=== PATIENT | female | born 1985 | race Caucasian/White ===

== ENCOUNTER 2017-12-06 11:12 | Outpatient (REF) | payer OTHER, SELFPAY | END 2017-12-06 11:32 | LOC: LBN 11:12 | PROVIDERS: PCP Nurse Practitioner Family; Visit Provider Nurse Practitioner Family | DX: R30.0 Dysuria (principal) | CPT/HCPCS: 87077; 87086; 87186 ==

== ENCOUNTER 2018-03-13 14:37 | Outpatient (REF) | payer OTHER, SELFPAY ==
[2018-03-15 14:36] LABS: Chlamydia Result Negative; GC Result Negative; Specimen Description CERVIX
== END 2018-03-13 14:57 ==
LOC: LBN 14:37
PROVIDERS: PCP Nurse Practitioner Family; Visit Provider Nurse Practitioner Family
DX: Z11.3 Encounter for screening for infections with a predominantly sexual mode of transmission (principal)
CPT/HCPCS: 87491; 87591

== ENCOUNTER 2018-10-27 09:01 | Outpatient (REF) | payer OTHER, SELFPAY ==
--- NOTE | 2018-10-27 08:45 | PAPFT_PTH ---
PATIENT: Mala Gil LOC: [facility] U#:[id number] AGE/SX: 33/F ROOM: RE10/27/[address]: DAVID Bennett : 1985 BED: DIS: 10/27/2018 SPEC #: [id number] RECD: 10/27/18 12:52 STATUS: DOROTA REDoreen #: [id number] GEOVANNA: 10/27/18 08:[address]: Shelley Davis DEPT: FORMERLY [facility], 1928–1983 Cytology RECD BY: Katherine Gonzalez ENTERED: 10/27/18 12:52 SP TYPE: PAPFT LUDWIG DR: Belen Leal APRN Tissues: 1 - CX/ENDOCX FOR PAP SMEARS Procedures: PAP THIN PREP/UVM Screening HPV DNA PROBE Comments: [id number]
[2018-10-30 14:16] LABS: Chlamydia Result Negative; GC Result Negative; Specimen Description CERVIX
== END 2018-10-27 09:21 ==
LOC: LBN 09:01
PROVIDERS: PCP Nurse Practitioner Family; Visit Provider Nurse Practitioner Family
DX: Z11.3 Encounter for screening for infections with a predominantly sexual mode of transmission (principal); Z12.4 Encounter for screening for malignant neoplasm of cervix; Z11.51 Encounter for screening for human papillomavirus (HPV)
CPT/HCPCS: 87491; 87591; 88142; 87624

== ENCOUNTER 2018-11-21 15:44 | Outpatient (REF) | payer OTHER, SELFPAY ==
--- NOTE | 2018-11-21 15:30 | ENDO_PTH ---
PATIENT: Mala Gil LOC: [facility] U#:[id number] AGE/SX: 33/F ROOM: RE11/21/[address]: Zan Burrows MD : 1985 BED: DIS: 11/21/2018 SPEC #: [id number] RECD: 11/21/18 17:54 STATUS: DOROTA REDoreen #: [id number] GEOVANNA: 11/21/18 15:[address]: Zan Burrows DEPT: Surgical Specimen RECD BY: Katherine Gonzalez ENTERED: 11/21/18 17:54 SP TYPE: Endo OTHR DR: Belen Leal APRN Tissues: 1 - ENDOCERVICAL BX/CURRETTE Procedures: GROSS AND MICRO LEVEL 4 Comments: [id number]
== END 2018-11-21 16:04 ==
LOC: LBN 15:44
PROVIDERS: PCP Nurse Practitioner Family; Visit Provider Obstetrics & Gynecology
DX: N88.8 Other specified noninflammatory disorders of cervix uteri (principal); R87.810 Cervical high risk human papillomavirus (HPV) DNA test positive
CPT/HCPCS: 88305

== ENCOUNTER 2019-10-18 20:57 | Outpatient (REF) | payer OTHER, SELFPAY ==
[2019-10-22 15:33] LABS: Chlamydia Result Negative (Negative); GC Result Negative (Negative)
== END 2019-10-18 21:17 ==
LOC: LBN 20:57
PROVIDERS: PCP Nurse Practitioner Family; Visit Provider Nurse Practitioner Family
DX: Z11.3 Encounter for screening for infections with a predominantly sexual mode of transmission (principal)
CPT/HCPCS: 87491; 87591

== ENCOUNTER 2019-11-15 17:24 | Outpatient (REF) | payer OTHER, SELFPAY ==
--- NOTE | 2019-11-15 13:10 | PAPFT_PTH ---
PATIENT: Mala Gil LOC: [facility] U#:[id number] AGE/SX: 34/F ROOM: RE11/15/[address]: DAVID Bennett : 1985 BED: DIS: 11/15/2019 SPEC #: [id number] RECD: 11/15/19 17:52 STATUS: DOROTA REQ #: [id number] GEOVANNA: 11/15/19 13:[address]: Shelely Davis DEPT: [facility] Cytology RECD BY: Katherine Gonzalez ENTERED: 11/15/19 17:53 SP TYPE: PAPFT OTHR DR: Belen Leal APRN Tissues: 1 - CX/ENDOCX FOR PAP SMEARS Procedures: PAP THIN PREP/UVM Screening HPV DNA PROBE Comments: [id number]
== END 2019-11-15 17:44 ==
LOC: LBN 17:24
PROVIDERS: PCP Nurse Practitioner Family; Visit Provider Nurse Practitioner Family
DX: Z12.4 Encounter for screening for malignant neoplasm of cervix (principal); Z11.51 Encounter for screening for human papillomavirus (HPV); R87.610 Atypical squamous cells of undetermined significance on cytologic smear of cervix (ASC-US)
CPT/HCPCS: 88142; 87624

== ENCOUNTER 2019-12-11 12:33 | Outpatient (REF) | payer OTHER, SELFPAY ==
--- NOTE | 2019-12-11 11:15 | ENDO_PTH ---
PATIENT: Mala Gil LOC: [facility] U#:[id number] AGE/SX: 34/F ROOM: RE12/11/[address]: Zan Burrows MD : 1985 BED: DIS: 12/11/2019 SPEC #: [id number] RECD: 12/11/19 12:49 STATUS: DOROTA REDoreen #: [id number] GEOVANNA: 12/11/19 11:[address]: Zan Burrows DEPT: Surgical Specimen RECD BY: Katherine Gonzalez ENTERED: 12/11/19 12:49 SP TYPE: Endo OTHR DR: Belen Leal APRN Tissues: 1 - ENDOCERVICAL BX/CURRETTE Procedures: GROSS AND MICRO LEVEL 4 Comments: [id number]
== END 2019-12-11 12:53 ==
LOC: LBN 12:33
PROVIDERS: PCP Nurse Practitioner Family; Visit Provider Obstetrics & Gynecology
DX: R87.610 Atypical squamous cells of undetermined significance on cytologic smear of cervix (ASC-US) (principal)
CPT/HCPCS: 88305

== ENCOUNTER 2019-12-14 11:52 | Outpatient (REF) | payer OTHER, SELFPAY ==
--- NOTE | 2019-12-14 10:50 | SKI_PTH ---
PATIENT: Mala Gil LOC: [facility] U#:[id number] AGE/SX: 34/F ROOM: RE12/14/[address]: Mary Lou Crouch : 1985 BED: DIS: 12/14/2019 SPEC #: [id number] RECD: 12/14/19 12:58 STATUS: DOROTA REQ #: [id number] GEOVANNA: 12/14/19 10:[address]: Mary Lou Crouch DEPT: Surgical Specimen RECD BY: Katherine Gonzalez ENTERED: 12/14/19 12:58 SP TYPE: FUENTES MUNROE DR: Belen Leal APRN Tissues: 1 - SKIN BIOPSY(SHAVE/PUNCH) Procedures: SKIN LEVEL 4 Comments: [id number]
== END 2019-12-14 12:12 ==
LOC: LBN 11:52
PROVIDERS: PCP Nurse Practitioner Family; Visit Provider Surgery
DX: D23.5 Other benign neoplasm of skin of trunk (principal)
CPT/HCPCS: 88305

== ENCOUNTER 2020-11-20 12:41 | Outpatient (REF) | payer OTHER, SELFPAY ==
--- NOTE | 2020-11-20 08:40 | PAPFT_PTH ---
PATIENT: Mala Gil LOC: [facility] U#:[id number] AGE/SX: 35/F ROOM: RE11/20/[address]: DAVID Bennett : 1985 BED: DIS: 11/20/2020 SPEC #: [id number] RECD: 11/20/20 13:04 STATUS: DOROTA REDoreen #: [id number] GEOVANNA: 11/20/20 08:[address]: Shelley Davis DEPT: [facility] Cytology RECD BY: Katherine Gonzalez ENTERED: 11/20/20 13:04 SP TYPE: PAPFT OT DR: Belen Leal APRN Tissues: 1 - CX/ENDOCX FOR PAP SMEARS Procedures: PAP THIN PREP/UVM Screening HPV DNA PROBE Comments: [id number]
[2020-11-21 15:24] LABS: Chlamydia Result Negative (Negative); GC Result Negative (Negative)
== END 2020-11-20 12:42 | disposition home or self-care (01) ==
LOC: LBN 12:41
PROVIDERS: PCP Nurse Practitioner Family; Visit Provider Nurse Practitioner Family
DX: Z11.3 Encounter for screening for infections with a predominantly sexual mode of transmission (principal); Z12.4 Encounter for screening for malignant neoplasm of cervix; Z11.51 Encounter for screening for human papillomavirus (HPV); R87.810 Cervical high risk human papillomavirus (HPV) DNA test positive
CPT/HCPCS: 87491; 87591; 88142; 87624

== ENCOUNTER 2021-05-15 15:50 | Outpatient (REF) | payer OTHER, SELFPAY ==
[2021-05-18 15:33] LABS: Chlamydia Result Negative (Negative); GC Result Negative (Negative)
== END 2021-05-15 15:51 | disposition home or self-care (01) ==
LOC: LBN 15:50
PROVIDERS: PCP Nurse Practitioner Family; Visit Provider Nurse Practitioner Family
DX: Z11.3 Encounter for screening for infections with a predominantly sexual mode of transmission (principal)
CPT/HCPCS: 87491; 87591

== ENCOUNTER 2021-10-21 15:01 | Outpatient (REF) | payer OTHER, SELFPAY ==
[2021-10-22 15:00] LABS: Chlamydia Result Negative (Negative); GC Result Negative (Negative)
== END 2021-10-21 15:02 | disposition home or self-care (01) ==
LOC: LBN 15:01
PROVIDERS: PCP Nurse Practitioner Family; Referring Provider Nurse Practitioner Women's Health; Visit Provider Nurse Practitioner Women's Health
DX: Z11.3 Encounter for screening for infections with a predominantly sexual mode of transmission (principal)
CPT/HCPCS: 87491; 87591

== ENCOUNTER 2021-12-21 09:16 | Outpatient (REF) | payer OTHER, SELFPAY ==
--- NOTE | 2021-12-21 08:30 | PAPFT_PTH ---
PATIENT: Mala Gil LOC: [facility] U#:[id number] AGE/SX: 36/F ROOM: RE12/21/[address]: Rhina Adame NP : 1985 BED: DIS: 12/21/2021 SPEC #: [id number] RECD: 12/21/21 12:48 STATUS: DOROTA HARRIS #: [id number] GEOVANNA: 12/21/21 08:[address]: Rhina Adame NP DEPT: [facility] Cytology RECD BY: Katherine Gonzalez ENTERED: 12/21/21 12:48 SP TYPE: PAPFT OTHR DR: Belen Leal APRN Tissues: 1 - CX/ENDOCX FOR PAP SMEARS Procedures: PAP THIN PREP/UVM Screening HPV DNA PROBE Comments: [id number] (CHLAMYDIA/GC)
[2021-12-22 15:31] LABS: Chlamydia Result Negative (Negative); GC Result Negative (Negative)
== END 2021-12-21 09:17 | disposition home or self-care (01) ==
LOC: LBN 09:16
PROVIDERS: PCP Nurse Practitioner Family; Visit Provider Nurse Practitioner Women's Health
DX: Z11.3 Encounter for screening for infections with a predominantly sexual mode of transmission (principal); Z12.4 Encounter for screening for malignant neoplasm of cervix; Z11.51 Encounter for screening for human papillomavirus (HPV); Z87.42 Personal history of other diseases of the female genital tract
CPT/HCPCS: 87491; 87591; 88142; 87624

== ENCOUNTER 2022-02-19 01:45 | Outpatient (CLI) | payer OTHER, SELFPAY ==
[2022-02-19 09:02] LABS: Anion Gap 8.6 mmol/L (3-11); BUN 15 mg/dL (7-18); CO2 24.4 mmol/L (21.0-32.0); CREATININE 0.9 mg/dL (0.55-1.02); Calculated LDL 100 mg/dL (<100); Chloride 103 mmol/L (98-107); Cholesterol 179 mg/dL (<200); Estimated GFR 84.44 (mL/min/1.73m2); Glucose 94 mg/dL (74-106); HDL Cholesterol 66 mg/dL (40-60); Sodium 136 mmol/L (136-145); Triglyceride 68 mg/dL (<150)
[2022-02-22 10:18] LABS: HIV-1/2 Ag & Ab Screen Negative (Negative)
[2022-02-22 10:37] LABS: Hepatitis C Ab w Rflx HCV PCR Negative (Negative)
== END 2022-02-19 01:46 | disposition home or self-care (01) ==
LOC: LBO 01:45
PROVIDERS: PCP Nurse Practitioner Family; Visit Provider Nurse Practitioner Family
DX: Z13.1 Encounter for screening for diabetes mellitus (principal); Z11.4 Encounter for screening for human immunodeficiency virus [HIV]; Z11.59 Encounter for screening for other viral diseases; Z13.220 Encounter for screening for lipoid disorders
CPT/HCPCS: 36415; 80048; 80061; 86803; 87389

== ENCOUNTER 2022-10-12 11:36 | Outpatient (REF) | payer MEDICAID, SELFPAY ==
[2022-10-13 13:12] LABS: Chlamydia Result Negative (Negative); GC Result Negative (Negative)
== END 2022-10-12 11:37 | disposition home or self-care (01) ==
LOC: LBN 11:36
PROVIDERS: PCP Nurse Practitioner Family; Visit Provider Obstetrics & Gynecology
DX: Z11.3 Encounter for screening for infections with a predominantly sexual mode of transmission (principal)
CPT/HCPCS: 87491; 87591; 87480; 87510; 87660

== ENCOUNTER 2023-03-29 03:17 | Outpatient (CLI) | payer OTHER, MEDICAID, SELFPAY ==
[2023-03-29 12:05] LABS: HCT 47.4 % (36.0-46.0); HGB 15.9 g/dL (11.2-15.7); MCH 31.2 pg (27.0-33.0); MCHC 33.5 % (32.0-36.0); MCV 93 fL (80-95); MPV 9.1 fL (8.0-11.0); Platelet Count 383 10^3/uL (130-400); RDW 12.7 % (11.7-14.6); RDW-SD 43.6 fL; WBC 8.47 10^3/uL (4.4-10.8)
[2023-03-29 12:24] LABS: Anion Gap 10.8 mmol/L (3-11); BUN 16 mg/dL (7-18); CO2 25.2 mmol/L (21.0-32.0); CREATININE 0.9 mg/dL (0.55-1.02); Calcium 9.5 mg/dL (8.5-10.1); Chloride 103 mmol/L (98-107); Estimated GFR 83.92 (mL/min/1.73m2); Glucose 96 mg/dL (74-106); Potassium 3.8 mmol/L (3.5-5.1); Sodium 139 mmol/L (136-145)
[2023-03-29 12:28] LABS: HCG Qual (Serum) Negative
== END 2023-03-29 03:18 | disposition home or self-care (01) ==
LOC: LBO 03:17
PROVIDERS: PCP Nurse Practitioner; Visit Provider Obstetrics & Gynecology Gynecology
DX: Z01.818 Encounter for other preprocedural examination (principal)
CPT/HCPCS: 36415; 80048; 85027; 86850; 86900; 86901; 84703

== ENCOUNTER 2023-03-30 06:14 | Day surgery (SDC) | payer OTHER, SELFPAY ==
[2023-03-30] VITALS (8 sets, daily range): BP systolic 103–133; BP diastolic 66–92; PULSE 72–96; RESP 16–22; TEMP 36.3–36.5; O2SAT 96–100; BMI 30.9
[2023-03-30] MEDS: Lactated Ringers 1,000 ML 125 ML IV (06:41)
--- NOTE | 2023-03-30 07:05 | W.ANESPRE ---
General Info Date of Service Date Performed: 03/30/23 Height: 5 ft 2 in Weight: 76.7 kg Body Mass Index (BMI): 30.9 Surgical Procedure: Operation Date: 03/30/23 07:40 Proposed Procedure Side Surgeon p Salpingectomy Laparoscopic Bilateral Bianca Hunt MD Meds Allergies and Home Medications Allergies Allergy/AdvReac Type Severity Reaction Status Date / Time aspirin Allergy Swelling/Ed Verified 03/30/23 06:35 cassius ibuprofen AdvReac Intermediate edema Verified 03/30/23 06:35 naproxen AdvReac Intermediate Abdominal Verified 03/30/23 06:35 pain Home Medication Medication Instructions Recorded citalopram 40 mg tablet 40 mg PO DAILY #90 tabs 03/22/23 penciclovir 1 % topical cream 1 applic topical QID #5 grams 03/22/23 (Denavir) Current Visit Medications: Current Medications Generic Name Dose Route Start Last Admin Trade Name Freq PRN Reason Stop Dose Admin Ringer's Solution 1,000 mls @ 125 mls/hr 03/30/23 06:00 03/30/23 06:41 IV 03/30/23 23:59 125 mls/hr INFUSION RAPHAEL Administration IV Miscellaneous Supplies 1 each 03/30/23 06:00 Iv Access IV 03/30/23 23:59 DIRECTED RAPHAEL Sodium Chloride 0 ml 03/30/23 06:00 Normal Saline Flush 10 Ml Syr IV 03/30/23 23:59 PRN PRN Sodium Chloride 0 ml 03/30/23 06:00 Normal Saline 10 Ml Vial IJ 03/30/23 23:59 DIRECTED PRN Sterile Water 0 ml 03/30/23 06:00 Water,Injection,Sterile 10 Ml Vial IJ 03/30/23 23:59 DIRECTED PRN PFSH Active Problems Active Problems: Problem Status Onset Code Preop examination Z01.818 Elevated BP without diagnosis of hypertension ~01/2023 R03.0 Routine screening for STI (sexually transmitted infection) Z11.3 Bacterial vaginosis N76.0, B96.89 Contraception Z30.9 Compound nevus of axilla D22.5 ASCUS with positive high risk HPV Depression F32.9 Cervical high risk HPV (human papillomavirus) test positive R87.810 Asthma HSV infection Medical History Medical History Encounter for Depo-Provera contraception Tobacco Smoking/Tobacco Use Status: Never Alcohol Alcohol Intake: current Alcohol intake frequency: a few times a month Substance Use Substance use: Never Substance use type: does not use Prental History History 1 Para Hx # Term Pregnancies 1 Multiple births Hx # Pregnancies Ectopic pregnancies AB induced Hx Number of Living Children AB spontaneous Vital Signs and Lab Results Vital Signs Most Recent Vital Signs in EMR: Most Recent Vital Signs Temp Pulse Resp BP Pulse Ox 36.3 C L 72 16 133/92 H 98 03/30/23 06:35 03/30/23 06:35 03/30/23 06:35 03/30/23 06:35 03/30/23 06:35 Lab Results Blood Type / Crossmatch: Patient ABO/Rh A Positive 03/29/23 Antibody Screen NEGATIVE 03/29/23 Complete Blood Count: White Blood Count 8.47 10^3/uL (4.4-10.8) 03/29/23 11:20 Red Blood Count 5.10 10^6/uL (3.93-5.22) 03/29/23 11:20 Hemoglobin 15.9 g/dL (11.2-15.7) H 03/29/23 11:20 Hematocrit 47.4 % (36.0-46.0) H 03/29/23 11:20 Platelet Count 383 10^3/uL (130-400) 03/29/23 11:20 Complete Metabolic Panel: Sodium 139 mmol/L (136-145) 03/29/23 11:20 Potassium 3.8 mmol/L (3.5-5.1) 03/29/23 11:20 Chloride 103 mmol/L (98-107) 03/29/23 11:20 Carbon Dioxide 25.2 mmol/L (21.0-32.0) 03/29/23 11:20 BUN 16 mg/dL (7-18) 03/29/23 11:20 Creatinine 0.9 mg/dL (0.55-1.02) 03/29/23 11:20 Est GFR (CKD-EPI 2020) 83.92 (mL/min/1.73m2) 03/29/23 11:20 Calcium 9.5 mg/dL (8.5-10.1) 03/29/23 11:20 Glucose 96 mg/dL (74-106) 03/29/23 11:20 Liver Function Panel: No Data to Display Coagulation Panel: No Data to Display Cardiac Panel: No Data to Display Arterial Blood Gas: No Data to Display Venous Blood Gas: No Data to Display Pancreas Panel: No Data to Display Thyroid Panel: No Data to Display Infectious Disease: No Data to Display Blood Cultures: No Data to Display Toxicology Panel: No Data to Display Panel: Serum HCG, Qualitative Negative 03/29/23 11:20 Anesthesia Assessment and Plan Anesthesia History Personal History: PONV Family History: No Family History of Anesthesia Complications Exercise Tolerance Exercise Tolerance: Metabolic Equivalents>4 Pertinent Negatives Pertinent Negatives: No Symptoms of GERD, No Major Cardiovascular Symptoms or Complaints and No Major Pulmonary Symptoms or Complaints Cardiac & Pulmonary Exam Cardiac Exam: Normal S1/S2 Heart Sounds Pulmonary Exam: Clear Bilateral Breath Sounds Implantable Cardiac Device Does patient have a Pacemaker or an ICD?: No Airway Exam Known Difficult Airway: No Mallampati Class: 1 Mouth Opening: Normal (> 3cm) Thyromental Distance: Greater than 3 cm Neck Range of Motion: Full ROM Neck Circumference: Normal Teeth Condition: Normal Dentition ASA Classification ASA Score: ASA 2 Emergency Case?: No NPO Status NPO Status: NPO Clears >2 hours, Solids >8 hours Status Status: Negative HCG Anesthesia Plan Resuscitation Status: Full Code Anesthesia Technique: General Anesthesia Airway Planned: Endotracheal Tube Monitors Used: Standard Monitors
--- NOTE | 2023-03-30 08:21 | FALL_PTH ---
PATIENT: Mala Gil LOC: [facility] U#:[id number] AGE/SX: 37/F ROOM: RE03/30/[address]: Bianca Hunt : 1985 BED: DIS: 03/30/2023 SPEC #: [id number] RECD: 03/30/23 11:33 STATUS: DOROTA HARRIS #: [id number] GEOVANNA: 03/30/23 08:[address]: Bianca Hunt DEPT: Surgical Specimen RECD BY: Katherine Gonzalez ENTERED: 03/30/23 11:33 SP TYPE: Fall OTHR DR: Luba Dueñas APRN Tissues: 1 - FALLOPIAN TUBE (STERILIZATION) 2 - FALLOPIAN TUBE (STERILIZATION) Procedures: GROSS AND MICRO LEVEL 2 Comments: [id number]
[2023-03-30] MEDS: Bupivacaine 0.25% Pres-Free 30 ML VIAL (08:28)
[2023-03-30] MEDS: Albuterol/Ipratropium 3 ML UPD VIAL UPD (08:50)
--- NOTE | 2023-03-30 09:30 | PDOC.DSDIS_ITS ---
Date of service: 03/30/23 Time of Service: 09:30 Discharge Plan Disposition Patient Disposition: Home Condition: Stable Discharge Details Reason For Visit: Laparoscopic bialateral salpingectomy Attending Provider: Bianca Hunt Primary Care Provider: Luba Dueñas Home Meds and New Rx's Prescriptions: No Action oxycodone-acetaminophen [Percocet] 5-325 mg tablet 1 tab PO Q6H MDD 4 PRN (Reason: pain) Qty: 5 0RF citalopram 40 mg tablet 40 mg PO DAILY Qty: 90 3RF penciclovir [Denavir] 1 % cream 1 applic Topical QID Qty: 5 3RF Rx Instructions: apply to cold sore 4-5 times a day. Discharge Instructions Additional Instructions: Keep your postop appointment in 2 weeks. You may removed band-aid as needed. Keep steristrips in place until your postop appointment. If they fall off that's OK. You may shower just pat the incisions dry and change the bandaid. 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 The Prescription has been called to [facility]. Stand Alone Forms: Anesthesia Discharge Inst., DSU Post [facility]/Sam Leo (DSU) Activity:: Activity as Tolerated Shower/Bathe:: 24 hours Diet:: As Tolerated Discharge Orders Discharge Orders: Discharge Order (Routine); Ordered 03/30/23 Ordered By: Bianca Hunt
--- NOTE | 2023-03-30 09:30 | W.ANESPOSTOP ---
Postoperative Evaluation Date, Time and Location Date Performed: 03/30/23 Time Performed: 09:20 Patient Location: PACU Vital Signs Most Recent Imported Vital Signs: Most Recent Vital Signs Temp Pulse Resp BP Pulse Ox 36.3 C L 96 H 16 114/78 96 03/30/23 09:04 03/30/23 09:19 03/30/23 09:19 03/30/23 09:19 03/30/23 09:19 Pain Score Most Recent Pain Score: Most Recent Pain Score Pain Level 0 03/30/23 09:19 Assessment Mental Status: Awake (Alert & Oriented to Patient Baseline) Airway and Respiratory Function: Patent airway with normal (patient baseline) respiratory exam Cardiovascular Function: Hemodynamically Stable Hydration Status: Adequately Hydrated Nausea & Vomiting: No Nausea or Vomiting Pain: Pt. Denies Any Pain Peripheral Nerve Block: Patient did not receive a nerve block Teaching Patient Teaching: Advised to seek followup for the following concerns (See explanation) Concerns: Poorly Controlled Hypertension
--- NOTE | 2023-03-30 22:09 | W.PM.OP ---
Date of service: 03/30/23 Time of Service: 22:09 Operative Note Operative Note DATE OF PROCEDURE: 03/30/23 PRE-OP DIAGNOSIS: undesired fertility POST-OP DIAGNOSIS: same PROCEDURE: Laparoscopic bilateral salpingectomy SURGEON: Bianca Hunt ASSISTING SURGEON: Delfina Hernandez Refer to Anesthesia Record ESTIMATED BLOOD LOSS: 5 PATHOLOGY: other (right and left fallopian tubes to pathology) COMPLICATIONS: None Patient was transported to: PACU Patient's condition: stable Indications: 37yo G1 female who requested permanent sterilization. No desire for future pregnancies even if her life circumstances were to change. Findings: Prominent ligamentum teres noted upon entry into the abdominal cavity with the umbilical trochar. Nl appearing uterus, fallopian tubes and ovaries. Normal upper abdomen. Procedure Description: Patient was taken to the operating room where she was placed in the dorsal supine position and endotracheal anesthesia was administered without difficulty. SCDs were in place. A surgical timeout was performed. She was prepped and draped in the usual sterile fashion. The umbilical fold was infiltrated with 0.25% Marcaine without epinephrine and 12 mm vertical skin incision was made in the umbilicus. Through this incision a varies needle connected to carbon dioxide gas was inserted into the abdomen and intra-abdominal placement confirmed by drop in the intra-abdominal pressure. Once a pneumoperitoneum was established a 12 mm Visiport trocar was introduced into the abdomen under direct visualization. The patient was then placed in Trendelenburg and 2 sites on the abdomen approximately 6 cm diagonal to the right of and left of the umbilical incision were transilluminated and the skin infiltrated with 0.25% Marcaine, incised with a scalpel and under direct visualization two 5 mm ports were placed in the right and left lower quadrants respectively. The abdomen was inspected with the above-noted findings. The left fallopian tube located and followed out to its fimbriated end and a LigaSure electrocautery device was used to clamp cauterize and transect the fimbria from the left mesosalpinx to the level of the left uterine cornua. The left fallopian tube was then delivered through the left 5 mm port and passed off of the operative field. A similar technique was carried out on the right fallopian tube without difficulty. The right fallopian tube was delivered through the right 5mm port. Both fallopian tube pedicles were inspected with the intra-abdominal pressure decreased to 5mmHg and noted to be hemostatic. Under direct visualization the two 5 mm ports were removed, pneumoperitoneum reduced, and the umbilical port removed. The fascia of the umbilical port site was reapproximated with interrupted suture of 0 Vicryl. The skin of all trocar sites was reapproximated with 4-0 Monocryl and steristrips and covered with dry sterile dressings. The patient was awakened extubated and transported to recovery area in stable condition. All sponge lap needle counts are correct x2.
== END 2023-03-30 06:15 | disposition home or self-care (01) ==
PROVIDERS: PCP Nurse Practitioner; Visit Provider Obstetrics & Gynecology Gynecology
PROC: (CPT 58661; principal; 2023-03-30 07:30)
DX: Z30.2 Encounter for sterilization (principal)
CPT/HCPCS: 58661; 88302; J0131; J0665; J1100; J1885; J2001; J2250; J2405; J2704; J3010; J7620

== ENCOUNTER → 2023-04-04 03:32 | Outpatient (CLI) | payer OTHER, SELFPAY ==
--- NOTE | 2023-04-04 08:00 | DI.MAMMO_ITS ---
Exam(s) MAMMO SCREENING EXAM: MAMMO SCREENING CLINICAL HISTORY: screening,z12.399, strong family h/o breast ca,z80.3 TECHNIQUE: Bilateral full field digital CC and MLO mammographic images were obtained with 3D tomosyn thesis and utilizing computer aided detection (CAD). COMPARISON: This is a baseline examination. FINDINGS: Masses/Architectural Distortion: None seen. Microcalcifications: No suspicious pleomorphic-type are seen. Skin Thickening/Nipple Retraction: None. IMPRESSION: 1. No significant interval change with no specific features of malignancy noted. 2. Unless there is more urgent need, screening mammography is recommended, as per [employer] guidelines. BI-RADS Category 1 - Negative Breast Density - Category C - Heterogeneously dense Breast density category C or D implies that the patient has dense breast tissue. Dense breast tissue is very common and is not abnormal but dense breast tissue can make it harder to find cancer on a ma mmogram. Also, dense breast tissue may increase their breast cancer risk. This information about the result of the mammogram report was provided to the patient to raise their awareness. Use this report when you speak with the patient about their risks for breast cancer, which includes their family hist ory. At that time, you may recommend for more screening tests (Ultrasound or MRI) as they might be us eful based on their risk. A negative radiographic report should not delay biopsy if a dominant or clinically suspicious mass is present. Up to ten percent of cancers are not identified on mammography. A negative report may reinforce clinical impression. Adenosis and dense breasts may obscure an underlying neoplasm. False positive reports average 6 to 10%. Patient will receive a letter notifying them of these results.
== END ==
PROVIDERS: PCP Nurse Practitioner; Visit Provider Nurse Practitioner
DX: Z12.31 Encounter for screening mammogram for malignant neoplasm of breast (principal); Z80.3 Family history of malignant neoplasm of breast
CPT/HCPCS: 77063; 77067

== ENCOUNTER 2023-04-20 15:14 | Outpatient (REF) | payer OTHER, SELFPAY ==
[2023-04-21 13:47] LABS: Chlamydia Result Negative (Negative); GC Result Negative (Negative)
== END 2023-04-20 15:15 | disposition home or self-care (01) ==
LOC: LBN 15:14
PROVIDERS: PCP Nurse Practitioner; Visit Provider Advanced Practice Midwife
DX: Z11.3 Encounter for screening for infections with a predominantly sexual mode of transmission (principal)
CPT/HCPCS: 87491; 87591; 87480; 87510; 87660

== ENCOUNTER 2023-08-11 05:27 | Outpatient (CLI) | payer OTHER, SELFPAY ==
--- NOTE | 2023-08-11 12:26 | TELEFU_ITS ---
Date of service: 08/11/23 Time of Service: 11:00 Nutrition Note NOTE: Mala in for nutrition visit today to discuss long standing struggles with her weight. 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 She states she only eats breakfast during the work week and will eat in the cafeteria - skips breakfast when not working/weekends. She reports not eating style and just eats when hungry - more reactionary in eating than a proactive, menu planning approach. She recently has been working to not snack/eat anything after dinner meal, so limiting to 3 meals and 1 afternoon snack most days. Pt reports low understanding of macronutrient concepts and kcal needs. Reviewed recommended kcal goal of 1500 kcals (300kcal deficit from the required 1800kcals I estimated her at with REEx1.3AF). Recommended ~85-100g protein per day. *also highlighted importance of being aware/tracking added sugar intake to ensure it stays 25g or less most days. *also highlighted fiber as necessary component and aiming for 25g per day No food allergies reported. Pt rates herself as a 6 on 1-10scale of picky eating (1 being worst). will not eat legumes, cauliflower and BN squash and a few other food choices. Was recently prescribed tirzepatide but has not picked up yet for 1st injection. No scheduled exercise at this time although pt has tried sonia and gym membership in the past. Empahsized need for activity and scheduled exercise to affect wt loss and suggested strength training 3x per week and gave some suggestions like PT/resistance bands. We reviewed some menu planning strategies . She took home some supportive materials on serving size of protein and carbs and plate method of setting up meals. She has my card to contact with any needs for more materials/resources, follow up appts, quick questions. Time Spent in Nutritional Counseling and Treatment: 30 minutes
== END 2023-08-11 05:28 | disposition home or self-care (01) ==
LOC: DS 05:27
PROVIDERS: PCP Nurse Practitioner; Visit Provider Dietitian, Registered
DX: E66.9 Obesity, unspecified (principal)
CPT/HCPCS: 00123; 97802

== ENCOUNTER 2023-11-17 09:58 | Outpatient (REF) | payer OTHER, SELFPAY ==
--- NOTE | 2023-11-17 08:40 | PAPFT_PTH ---
PATIENT: Mala Gil LOC: [facility] U#:[id number] AGE/SX: 38/F ROOM: RE11/17/[address]: Radha Pinedo MD : 1985 BED: DIS: 11/17/2023 SPEC #: [id number] RECD: 11/17/23 13:11 STATUS: DOROTA HARRIS #: [id number] GEOVANNA: 11/17/23 08:[address]: Radha Pinedo DEPT: [facility] Cytology RECD BY: Katherine Gonzalez ENTERED: 11/17/23 13:12 SP TYPE: PAPFT LUDWIG DR: Luba Dueñas APRN Tissues: 1 - CX/ENDOCX FOR PAP SMEARS Procedures: PAP THIN PREP/UVM Screening HPV DNA PROBE Comments: [id number] (HPV 16 & 18/45) (CHLAMYDIA/GC)
[2023-11-18 11:00] LABS: Chlamydia Result Negative (Negative); GC Result Negative (Negative)
== END 2023-11-17 09:59 | disposition home or self-care (01) ==
LOC: LBN 09:58
PROVIDERS: PCP Nurse Practitioner; Visit Provider Obstetrics & Gynecology
DX: Z12.4 Encounter for screening for malignant neoplasm of cervix (principal); Z72.51 High risk heterosexual behavior
CPT/HCPCS: 87491; 87591; 88142; 87624

== ENCOUNTER 2024-02-20 09:37 | Outpatient (REF) | payer OTHER, SELFPAY ==
[2024-02-21 11:05] LABS: Chlamydia Result Negative (Negative); GC Result Negative (Negative)
== END 2024-02-20 09:38 | disposition home or self-care (01) ==
LOC: LBN 09:37
PROVIDERS: PCP Nurse Practitioner; Visit Provider Nurse Practitioner Women's Health
DX: Z11.3 Encounter for screening for infections with a predominantly sexual mode of transmission (principal); B00.9 Herpesviral infection, unspecified
CPT/HCPCS: 87491; 87591

== ENCOUNTER 2024-02-20 12:02 | Outpatient (CLI) | payer OTHER, SELFPAY ==
[2024-02-20 18:32] LABS: Hepatitis C Ab w Rflx HCV PCR Negative (Negative)
[2024-02-20 18:34] LABS: HIV-1/2 Ag & Ab Screen Negative (Negative)
[2024-02-22 14:00] LABS: Syphilis IgG w/Reflex Nonreactive (Nonreactive)
== END 2024-02-20 12:03 | disposition home or self-care (01) ==
LOC: LBO 12:04
PROVIDERS: PCP Nurse Practitioner; Visit Provider Nurse Practitioner Women's Health
DX: Z11.3 Encounter for screening for infections with a predominantly sexual mode of transmission (principal); B00.9 Herpesviral infection, unspecified
CPT/HCPCS: 36415; 86803; 87389; 87491; 87591; 86780

== ENCOUNTER 2024-04-09 02:28 | Outpatient (CLI) | payer OTHER, MEDICAID, SELFPAY ==
--- NOTE | 2024-04-09 07:15 | DI.MAMMO_ITS ---
Exam(s) MAMMO SCREENING EXAM: MAMMO SCREENING CLINICAL HISTORY: screening,Z12.39 TECHNIQUE: Mammograms were interpreted according to the usual protocol including computer analysis w Axcient CAD system, tomosynthesis and C-view imaging. COMPARISON: 2023 FINDINGS: The breasts are composed of heterogeneously dense fibroglandular densities, Breast Density category C . No suspicious masses or suspicious microcalcifications are seen. No skin thickening or abnormal axillary lymph nodes are seen. There has been no significant change from prior exams. IMPRESSION: BI-RADS Category 1, Negative mammogram. Yearly screening mammography is recommended. Breast Density Category C, heterogeneously Dense. The mammogram demonstrates the patient's breast tissue is dense. Dense breast tissue is very common a nd is not abnormal but dense breast tissue can make it harder to find cancer on a mammogram. Also, de nse breast tissue may increase breast cancer risk. This information about the result of the mammogram report was provided to the patient to raise their awareness. Use this report when you speak with the patient about their risks for breast cancer, which includes their family history. At that time, you may recommend additional screening tests (Ultrasound or MRI) as they might be useful based on their r isk. A negative radiographic report should not delay biopsy if a dominant or clinically suspicious mass is present. Up to ten percent of cancers are not identified on mammography. A negative report may reinforce clinical impression. Adenosis and dense breasts may obscure an underlying neoplasm. False positive reports average 6 to 10%.
== END 2024-04-09 02:48 ==
LOC: DI 02:28
PROVIDERS: PCP Nurse Practitioner; Visit Provider Nurse Practitioner
DX: Z12.31 Encounter for screening mammogram for malignant neoplasm of breast (principal); R92.333 Mammographic heterogeneous density, bilateral breasts
CPT/HCPCS: 77063; 77067

== ENCOUNTER 2024-04-26 03:49 | Outpatient (CLI) | payer OTHER, MEDICAID, SELFPAY ==
[2024-04-26 08:15] LABS: Calculated LDL 95 mg/dL (<100); Cholesterol 167 mg/dL (<200); HDL Cholesterol 62 mg/dL (40-60); Triglyceride 53 mg/dL (<150)
== END 2024-04-26 03:50 | disposition home or self-care (01) ==
PROVIDERS: PCP Nurse Practitioner; Visit Provider Nurse Practitioner
DX: Z13.220 Encounter for screening for lipoid disorders (principal)
CPT/HCPCS: 36415; 80061

== ENCOUNTER 2024-06-20 16:05 | Outpatient (CLI) | payer OTHER, MEDICAID, SELFPAY ==
--- NOTE | 2024-06-20 14:00 | DI.RAD_ITS ---
Exam(s) XR SHOULDER RT COMPLETE 2+V EXAM: XR SHOULDER RT COMPLETE 2+V CLINICAL HISTORY: RIGHT SHOULDER PAIN. TECHNIQUE: 2D digital imaging was performed. COMPARISON: No exams were available for comparison FINDINGS: Two views. No evidence of fracture or dislocation of the glenohumeral joint and no obvious degenerative changes in the glenohumeral joint. No abnormal calcifications in the subacromial space. Bone density normal . No osseous lesions. Mild degenerative changes in the AC joint. Coracoid process appears unremark able. On the axial view there is a thin calcific density just anterior to the anterior cortex of the proxim al humeral diaphysis. This may represent a loose body within the biceps tendon sheath. No adjacent both lesion evident. IMPRESSION: Glenohumeral joint unremarkable. Soft tissue calcification as described above anterior to the proxim al humerus. This may be within the biceps tendon sheath DATA REPOSITORY: RADIATION DOSE DELIVERED:
== END 2024-06-20 16:06 | disposition home or self-care (01) ==
LOC: DIORS 16:05
PROVIDERS: PCP Nurse Practitioner; Visit Provider Student in an Organized Health Care Education/Training Program
DX: M25.511 Pain in right shoulder (principal)
CPT/HCPCS: 73030

== ENCOUNTER 2024-07-06 00:10 | Outpatient (CLI) | payer OTHER, MEDICAID, SELFPAY ==
--- NOTE | 2024-07-06 06:30 | DI.MRI_ITS ---
Exam(s) MR UPPER JOINT RT WO EXAM: MR UPPER JOINT RT WO CLINICAL HISTORY: R SHOULDER PAIN, rt rotator cuff tear, M75.101. TECHNIQUE: Multiplanar multisequence MRI was performed. COMPARISON: Plain films 20 June 2024 FINDINGS: BONES: There is no fracture or contusion pattern. JOINTS:The acromioclavicular joint is normal. The glenohumeral joint is normal. TENDONS: Supraspinatus: Thickening and edema in the anterior distal supraspinatus muscle tendon junction, near the coracoclavicular ligament. No visible focal tear. Infraspinatus: Unremarkable. Subscapularis: Unremarkable. Teres Minor: Unremarkable. Biceps and [place]: Unremarkable. MUSCLES: Unremarkable. GLENOID LABRUM: Unremarkable on this noncontrast examination. SOFT TISSUES: Unremarkable. BURSAE: Subacromial and subdeltoid bursae shows no fluid. Minimal amount of fluid in the subcoracoid bursa. . IMPRESSION: Inflammation in the anterior supraspinatus muscle tendon junction near the coracoid clavicular ligame nt. No focal tear. DATA REPOSITORY:
== END 2024-07-06 00:30 ==
LOC: DI 00:10
PROVIDERS: PCP Nurse Practitioner; Visit Provider Student in an Organized Health Care Education/Training Program
DX: M75.101 Unspecified rotator cuff tear or rupture of right shoulder, not specified as traumatic (principal)
CPT/HCPCS: 73221

== ENCOUNTER 2024-07-12 10:33 | Outpatient (REF) | payer OTHER, MEDICAID, SELFPAY ==
[2024-07-13 11:06] LABS: Chlamydia Result Negative (Negative); GC Result Negative (Negative)
== END 2024-07-12 10:34 | disposition home or self-care (01) ==
LOC: LBN 10:33
PROVIDERS: PCP Nurse Practitioner; Visit Provider Obstetrics & Gynecology
DX: N93.0 Postcoital and contact bleeding (principal)
CPT/HCPCS: 87491; 87591; 87480; 87510; 87660

== ENCOUNTER 2024-07-16 21:13 | Emergency (ER) | payer OTHER, MEDICAID, SELFPAY ==
[2024-07-16 21:19] VITALS: BP 122/89; PULSE 106; RESP 18; TEMP 36.7; O2SAT 98
[2024-07-16 21:22] VITALS: BP 122/89; PULSE 106; RESP 18; TEMP 36.7; O2SAT 98
--- NOTE | 2024-07-16 21:24 | W.ED.GENAD ---
Discharge Plan Disposition Patient Disposition: Home Condition: Stable Discharge Details Clinical Impression: Dog bite of right wrist Primary Care Provider: Luba Dueñas ED Provider: Jesus Munguia Home Meds and New Rx's Prescriptions: New amoxicillin-pot clavulanate 875-125 mg tablet 1 tab PO BID 10 Days Qty: 19 0RF Continued citalopram 20 mg tablet 20 mg PO DAILY Qty: 90 3RF albuterol sulfate 90 mcg/actuation HFA aerosol inhaler 2 inh inhalation Q4H PRN (Reason: shortness of breath or wheezing) Qty: 8.5 12RF tirzepatide (weight loss) 5 mg/0.5 mL pen injector 5 mg subcut QWEEK Qty: 2 8RF penciclovir [Denavir] 1 % cream 1 applic Topical QID Qty: 5 3RF Rx Instructions: apply to cold sore 4-5 times a day. valacyclovir 500 mg tablet 500 mg PO DAILY Qty: 90 3RF Discharge Instructions Instructions: Amoxicillin and Clavulanate, Rabies Immune Globulin (Human), Rabies Vaccine, Animal Bites ED Additional Instructions: You were seen in the emergency department for deep bite to your right wrist from an aggressive unknown dog, the dog's rabies status is unknown at this time and we did discuss the possibility of trying to contain the dog and coming back tomorrow but he opted for rabies vaccine currently, we did give you rabies immunoglobulin around the bite site, your tetanus is up-to-date, we also started you on an antibiotic called Augmentin rl, 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 Please watch for worsening signs of infection like red streaking up your arm, purulent drainage, increasing swelling and fever. You need to return on day 3, day 7, day 14 for further rabies shots. Referrals: Luba Dueñas NP [Primary Care Provider] - Discharge Data Discharge Date/Time-TO BE ENTERED AT DEPARTURE: 07/16/24 22:31 HPI General Date/Time Provider Initiated Documentation: 07/16/24 21:19. HPI Narrative: 39 year-old female presents to ED today by POV/ambulating with a chief complaint of dog bite to R wrist from a neighborhood dog that has been agressive toward her dog twice with onset just prior to arrival when she tried to break up the dog fight. Quality described as abrasions/minor bite to R wrist, no radiation to deep puncture wounds, active bleeding, bruising/swelling, red streaking up the arm. Severity is described as moderate. Palliating factors include nothing specific attempted. Provoking factors include nothing specific. Events leading up to the incident/Associated Symptoms: the dogs rabies status is unknown and likely cannot be confirmed, PD/animal control have been informed. Patient not anticoagulated. Related Data Home Medications ?Medication ?Instructions ?Recorded ?Confirmed penciclovir 1 % topical cream 1 applic topical QID #5 grams 03/22/23 07/16/24 (Denavir) albuterol sulfate 90 mcg/actuation 2 inh inhalation Q4H PRN shortness 04/04/24 07/16/24 aerosol inhaler of breath or wheezing #8.5 grams citalopram 20 mg tablet 20 mg PO DAILY #90 tabs 04/04/24 07/16/24 tirzepatide (weight loss) 5 mg/0.5 5 mg (0.5 mL) subcut QWEEK #2 mL 04/04/24 07/16/24 mL subcutaneous pen injector valacyclovir 500 mg tablet 500 mg PO DAILY #90 tabs 04/04/24 07/16/24 amoxicillin 875 mg-potassium 1 tab PO BID 10 days #19 tabs 07/16/24 clavulanate 125 mg tablet Previous Rx's ?Medication ?Instructions ?Recorded penciclovir 1 % topical cream 1 applic topical QID #5 grams 03/22/23 (Denavir) albuterol sulfate 90 mcg/actuation 2 inh inhalation Q4H PRN shortness 04/04/24 aerosol inhaler of breath or wheezing #8.5 grams citalopram 20 mg tablet 20 mg PO DAILY #90 tabs 04/04/24 tirzepatide (weight loss) 5 mg/0.5 5 mg (0.5 mL) subcut QWEEK #2 mL 04/04/24 mL subcutaneous pen injector valacyclovir 500 mg tablet 500 mg PO DAILY #90 tabs 04/04/24 amoxicillin 875 mg-potassium 1 tab PO BID 10 days #19 tabs 07/16/24 clavulanate 125 mg tablet Allergies Allergy/AdvReac Type Severity Reaction Status Date / Time aspirin Allergy Swelling/Ed Verified 07/16/24 21:23 cassius ibuprofen AdvReac Intermediate edema Verified 07/16/24 21:23 naproxen AdvReac Intermediate Abdominal Verified 07/16/24 21:23 pain General Stated Complaint: AnimalBite HALIMA: 3 Review of Systems All systems reviewed & are unremarkable except as noted in HPI and below Exam Narrative Exam Narrative: GENERAL APPEARANCE: Well-nourished, non-toxic, awake and alert, atraumatic, no acute distress. SKIN: Warm, pink, dry, shallow puncture wounds to R wrist, no gross swelling/deformity, no ecchymosis, no lymphadenitis, ROM/sensation intact to hand HEAD: Normocephalic, atraumatic, normal hair distribution for gender/age. EYES: Normal conjunctiva, no exudates on lids/lashes. ENT: Nares patent, no circumoral cyanosis, no facial swelling NECK: Supple, trachea midline, painless cervical ROM. LUNGS/CHEST: Non-labored respirations, normal A/P diameter, symmetrical expansion, no chest wall deformity HEART (CV/PV): Regular rate, R radial pulse 2+, no peripheral edema, no JVD. ABDOMEN: Soft, non-distended, no guarding. MSK: Normal ROM, no swelling/deformity to bilateral UEs or LEs, moving all extremities without weakness, no cyanosis, spine midline without tenderness, normal curvature. NEURO: Mental Status AAOx4 - alert to person, place, time, events No facial droop, no forehead involvement. Motor: No focal weakness - strength 5/5 in bilateral UEs and LEs, proximal and distal, symmetric. Sensory: sensation intact to light touch globally. Gait normal: patient ambulated without ataxia into ED room. PSYCH: euthymic, cooperative, pleasant, appropriate speech Course Vital Signs Vital signs: Vital Signs Temperature 36.7 C 07/16/24 21:19 Pulse 106 H 07/16/24 21:19 Respiratory Rate 18 07/16/24 21:19 Blood Pressure 122/89 07/16/24 21:19 Pulse Oximetry 98 07/16/24 21:19 Temperature 36.7 C 07/16/24 21:22 Pulse 106 H 07/16/24 21:22 Respiratory Rate 18 07/16/24 21:22 Blood Pressure 122/89 07/16/24 21:22 Pulse Oximetry 98 04/21/25 21:22 Oxygen Delivery Method Room Air 07/16/24 21:22 Oxygen Flow Rate 0 07/16/24 21:22 Pain Level 4 07/16/24 21:22 Medical Decision Making This dictation utilizes [id number] dictation software and may contain unedited grammatical errors. 39 year-old female presents to ED today by POV/ambulating with a chief complaint of dog bite to R wrist from a neighborhood dog that has been agressive toward her dog twice with onset just prior to arrival when she tried to break up the dog fight. Quality described as abrasions/minor bite to R wrist, no radiation to deep puncture wounds, active bleeding, bruising/swelling, red streaking up the arm. Severity is described as moderate. Palliating factors include nothing specific attempted. Provoking factors include nothing specific. Events leading up to the incident/Associated Symptoms: the dogs rabies status is unknown and likely cannot be confirmed, PD/animal control have been informed. Patients' medical history: Noncontributory. Family and social history: Noncontributory. Pertinent exam findings / vital signs include shallow puncture wounds and abrasions to right wrist without swelling or deformity, neurovascularly intact in the right hand, no lymphadenitis. Differential / pathologies of concern include dog bite, rabies exposure. Diagnostic studies of: - None. Interventions of: - RIG, first dose of rabies shot, started on Augmentin. ED Course/Assessment/Plan: 39-year-old female presents with a dog bite to the right wrist, dog seems aggressive it is the second time this dog has attacked her dog, she was bitten while trying to break up the dog fight, we did provide rabies immunoglobulin and the first dose of the rabies series as the patient likely cannot confirm rabies status or contain this aggressive dog. Started on Augmentin for dog bite counseled on strict return criteria for worsening signs of infection and return on day 3, 7, 14 for additional rabies series doses. Findings not consistent with deep puncture wounds, fracture. Disposition of dog bite of right wrist. Patient verbalized understanding of the plan and return to ED criteria and engaged in shared decision making. Medical Records Medical records reviewed: Yes I reviewed the patient's medical records. Quality:SDOH Health Related Social Needs: Health related social needs problems related to housing/economic circumstances (Z59.89) PFSH All Active Problems (Updated 07/16/24 @ 22:10 by ROBBY Onofre) Dog bite of right wrist (Acute) Abnormal Papanicolaou smear of cervix (Acute) Abnormal uterine bleeding (Acute) Rotator cuff tear, right (Acute) Obesity (Chronic) Compound nevus of axilla (Acute) Depression (Chronic) Asthma (Chronic) HSV infection (Chronic) Oral Medical History Family history of breast cancer Maternal aunt, MGM (60s?), maternal cousin (30s) One other cousin had testing and was negative. History of abnormal cervical Pap smear Oct 2023: NIL/+HPV(other types) -> colp: no abnormal cells Nov 2021: NIL/neg HPV Oct 2020: NIL/+HPV -->colp: no bx Oct 2019: ASCUS/+HPV -->colp: benign bx Oct 2018: NIL/+HPV --> colp: benign bx September 2017: NIL/+HPV August 2014: NIL/neg HPV May 2013: NIL/+HPV May 2012: ASCUS/+HPV --> colp: benign bx 2010 & 2011: NIL Routine screening for STI (sexually transmitted infection) Elevated BP without diagnosis of hypertension (~01/2023) Bacterial vaginosis Surgical History H/O bilateral salpingectomy (03/30/23) Mar 2023 Family History Mother Hypertension Aunt Breast cancer Maternal Grandmother Breast cancer Paternal Grandfather Colon cancer Social History Smoking/Tobacco Use Status: Never Smoking risk assessment performed?: Yes Alcohol Intake: current Alcohol Intake frequency: a few times a month Drug use: Never Substance use type: does not use Counseling given: No Household members: other Details: from her partner. Lives with daughter Ami Murphy. 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
[2024-07-16] MEDS: Rabies vaccine (PCEC)/PF 2.5 UNITS/ML VIAL IM (22:11)
[2024-07-16] MEDS: Rabies Immune Globulin 300 UNIT/ML VIAL 1170.26 UNIT IM (22:14)
[2024-07-16] MEDS: Amoxicillin 875/Clav. 125 TAB PO (22:27)
[2024-07-16 22:30] VITALS: BP 126/84; PULSE 85; RESP 16; O2SAT 98
--- NOTE | 2024-07-16 22:36 | NUR.NOTE ---
Rabies Vaccination Doses were verified by myself and [facility] Extermin[facility], ARABELLA Infiltrate placed by Provider, ANNIKA
--- NOTE | 2024-07-17 07:58 | NUR.NOTE ---
Animal bite report faxed to [facility], Mckinley Tilley. Nursing Note:
== END 2024-07-16 22:31 | disposition home or self-care (01) ==
PROVIDERS: Emergency Provider Physician Assistant; PCP Nurse Practitioner
DX: S60.811A Abrasion of right wrist, initial encounter (principal); W54.0XXA Bitten by dog, initial encounter; Y93.89 Activity, other specified; Y92.014 Private driveway to single-family (private) house as the place of occurrence of the external cause; Z23 Encounter for immunization
CPT/HCPCS: 90375; 90675

== ENCOUNTER 2024-07-19 16:06 | Emergency (ER) | payer OTHER, MEDICAID, SELFPAY ==
[2024-07-19 16:32] VITALS: BP 130/81; PULSE 88; RESP 20; TEMP 36.6; O2SAT 100
--- NOTE | 2024-07-19 16:49 | ED.GENADUL_ITS ---
Discharge Plan Disposition Patient Disposition: Home Condition: Stable Discharge Details Clinical Impression: Need for rabies vaccination Primary Care Provider: Luba Dueñas ED Provider: Kylee Villegas Home Meds and New Rx's Prescriptions: No Action citalopram 20 mg tablet 20 mg PO DAILY Qty: 90 3RF albuterol sulfate 90 mcg/actuation HFA aerosol inhaler 2 inh inhalation Q4H PRN (Reason: shortness of breath or wheezing) Qty: 8.5 12RF tirzepatide (weight loss) 5 mg/0.5 mL pen injector 5 mg subcut QWEEK Qty: 2 8RF penciclovir [Denavir] 1 % cream 1 applic Topical QID Qty: 5 3RF Rx Instructions: apply to cold sore 4-5 times a day. valacyclovir 500 mg tablet 500 mg PO DAILY Qty: 90 3RF amoxicillin-pot clavulanate 875-125 mg tablet 1 tab PO BID 10 Days Qty: 19 0RF Discharge Instructions Instructions: Rabies Vaccine CDC Vaccine Information Statement (VIS) Additional Instructions: You will need 2 more rabies shots (at 14 days and 28 days). Order has been sent to infusion center for remainder of injections. 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 HPI Narrative: 39-year-old female presents for second rabies vaccine. Patient was seen here 3 days ago after sustaining dog bite. She received her first rabies vaccine at that time. Bite is healing. Area is bruised. No concerns for infection. Related Data Home Medications ?Medication ?Instructions ?Recorded ?Confirmed penciclovir 1 % topical cream 1 applic topical QID #5 grams 03/22/23 07/19/24 (Denavir) albuterol sulfate 90 mcg/actuation 2 inh inhalation Q4H PRN shortness 04/04/24 07/19/24 aerosol inhaler of breath or wheezing #8.5 grams citalopram 20 mg tablet 20 mg PO DAILY #90 tabs 04/04/24 07/19/24 tirzepatide (weight loss) 5 mg/0.5 5 mg (0.5 mL) subcut QWEEK #2 mL 04/04/24 07/19/24 mL subcutaneous pen injector valacyclovir 500 mg tablet 500 mg PO DAILY #90 tabs 04/04/24 07/19/24 amoxicillin 875 mg-potassium 1 tab PO BID 10 days #19 tabs 07/16/24 07/19/24 clavulanate 125 mg tablet Previous Rx's ?Medication ?Instructions ?Recorded penciclovir 1 % topical cream 1 applic topical QID #5 grams 03/22/23 (Denavir) albuterol sulfate 90 mcg/actuation 2 inh inhalation Q4H PRN shortness 04/04/24 aerosol inhaler of breath or wheezing #8.5 grams citalopram 20 mg tablet 20 mg PO DAILY #90 tabs 04/04/24 tirzepatide (weight loss) 5 mg/0.5 5 mg (0.5 mL) subcut QWEEK #2 mL 04/04/24 mL subcutaneous pen injector valacyclovir 500 mg tablet 500 mg PO DAILY #90 tabs 04/04/24 amoxicillin 875 mg-potassium 1 tab PO BID 10 days #19 tabs 07/16/24 clavulanate 125 mg tablet Allergies Allergy/AdvReac Type Severity Reaction Status Date / Time aspirin Allergy Swelling/Ed Verified 07/19/24 16:36 cassius ibuprofen AdvReac Intermediate edema Verified 07/19/24 16:36 naproxen AdvReac Intermediate Abdominal Verified 07/19/24 16:36 pain General Stated Complaint: Recheck HALIMA: 5 Review of Systems Narrative: Review of systems as noted in the HPI. Exam Narrative Exam Narrative: General: non-toxic, no respiratory distress, comfortable HEENT: normocephalic, atraumatic, lids and lashes normal, PERRL, EOMI, anicteric sclera, no conjunctival injection, moist oral mucosa Musculoskeletal: full range of motion of arms and legs, no tenderness to palpation. no clubbing, cyanosis, or edema Neurologic: appropriate for age, strength normal Psych: alert and oriented Skin: Bruising and abrasions noted to right wrist, otherwise no petechiae, no lesions, warm and dry Course Vital Signs Vital signs: Vital Signs Temperature 36.6 C 07/19/24 16:32 Pulse 88 07/19/24 16:32 Respiratory Rate 20 07/19/24 16:32 Blood Pressure 130/81 07/19/24 16:32 Pulse Oximetry 100 04/24/25 16:32 Temperature 36.6 C 07/19/24 16:32 Pulse 88 07/19/24 16:32 Respiratory Rate 20 07/19/24 16:32 Blood Pressure 130/81 07/19/24 16:32 Blood Pressure Position Sitting 07/19/24 16:32 Pulse Oximetry 100 07/19/24 16:32 Oxygen Delivery Method Room Air 07/19/24 16:32 Oxygen Flow Rate 0 07/19/24 16:32 Medical Decision Making 39-year-old female with recent dog bite presents for second rabies vaccine. Wound appears to be healing well. No sign of infection at this time. No reaction to first immunization. Second immunization was ordered and paperwork was completed so that patient may go to infusion center for the remainder of her vaccines. Quality:SDOH Health Related Social Needs: Health related social needs problems related to housin g/economic circumstances (Z59.89) PFSH All Active Problems Need for rabies vaccination (Acute) Dog bite of right wrist (Acute) Abnormal Papanicolaou smear of cervix (Acute) Abnormal uterine bleeding (Acute) Rotator cuff tear, right (Acute) Obesity (Chronic) Compound nevus of axilla (Acute) Depression (Chronic) Asthma (Chronic) HSV infection (Chronic) Oral Medical History Family history of breast cancer Maternal aunt, MGM (60s?), maternal cousin (30s) One other cousin had testing and was negative. History of abnormal cervical Pap smear Oct 2023: NIL/+HPV(other types) -> colp: no abnormal cells Nov 2021: NIL/neg HPV Oct 2020: NIL/+HPV -->colp: no bx Oct 2019: ASCUS/+HPV -->colp: benign bx Oct 2018: NIL/+HPV --> colp: benign bx September 2017: NIL/+HPV August 2014: NIL/neg HPV May 2013: NIL/+HPV May 2012: ASCUS/+HPV --> colp: benign bx 2010 & 2011: NIL Routine screening for STI (sexually transmitted infection) Elevated BP without diagnosis of hypertension (~01/2023) Bacterial vaginosis Surgical History H/O bilateral salpingectomy (03/30/23) Mar 2023 Family History Mother Hypertension Aunt Breast cancer Maternal Grandmother Breast cancer Paternal Grandfather Colon cancer Social History Smoking/Tobacco Use Status: Never Smoking risk assessment performed?: Yes Alcohol Intake: current Alcohol Intake frequency: a few times a month Drug use: Never Substance use type: does not use Counseling given: No Household members: other Details: from her partner. Lives with daughter Ami Murphy. 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
[2024-07-19] MEDS: Rabies vaccine (PCEC)/PF 2.5 UNITS/ML VIAL IM (17:01)
== END 2024-07-19 17:08 | disposition home or self-care (01) ==
LOC: ER 16:48
PROVIDERS: Emergency Provider Emergency Medicine Emergency Medical Services; PCP Nurse Practitioner
DX: Z20.3 Contact with and (suspected) exposure to rabies (principal); Z29.14 Encounter for prophylactic rabies immune globulin; Z59.89 Other problems related to housing and economic circumstances
CPT/HCPCS: 99283; 99284; 90471; 90675

== ENCOUNTER 2024-07-23 00:25 | Outpatient (RCR) | payer OTHER, MEDICAID, SELFPAY ==
[2024-07-23] MEDS: Rabies vaccine (PCEC)/PF 2.5 UNITS/ML VIAL IM (14:03)
== END 2024-07-25 23:59 | disposition home or self-care (01) ==
LOC: INF 00:25
PROVIDERS: PCP Nurse Practitioner; Visit Provider Emergency Medicine Emergency Medical Services
DX: Z29.14 Encounter for prophylactic rabies immune globulin (principal); Z20.3 Contact with and (suspected) exposure to rabies
CPT/HCPCS: 96372; 90675

== ENCOUNTER 2024-07-30 02:18 | Outpatient (RCR) | payer OTHER, MEDICAID, SELFPAY ==
[2024-07-30] MEDS: Rabies vaccine (PCEC)/PF 2.5 UNITS/ML VIAL IM (14:10)
== END 2024-08-25 23:59 | disposition home or self-care (01) ==
LOC: INF 02:18
PROVIDERS: PCP Nurse Practitioner; Visit Provider Emergency Medicine Emergency Medical Services
DX: Z29.14 Encounter for prophylactic rabies immune globulin (principal); Z20.3 Contact with and (suspected) exposure to rabies
CPT/HCPCS: 96372; 90675

== ENCOUNTER 2024-09-05 09:26 | Outpatient (REF) | payer OTHER, MEDICAID, SELFPAY ==
[2024-09-06 12:35] LABS: Chlamydia Result Negative (Negative); GC Result Negative (Negative)
== END 2024-09-05 09:27 | disposition home or self-care (01) ==
LOC: LBN 09:26
PROVIDERS: PCP Nurse Practitioner; Visit Provider Nurse Practitioner Women's Health
DX: Z11.3 Encounter for screening for infections with a predominantly sexual mode of transmission (principal)
CPT/HCPCS: 87491; 87591

== ENCOUNTER 2024-11-20 15:14 | Outpatient (REF) | payer OTHER, MEDICAID, SELFPAY ==
--- NOTE | 2024-11-20 14:45 | PAPFT_PTH ---
PATIENT: Mala Gil LOC: [facility] U#:[id number] AGE/SX: 39/F ROOM: RE11/20/[address]: Rhina Adame NP : 1985 BED: DIS: 11/20/2024 SPEC #: [id number] RECD: 11/20/24 18:01 STATUS: DOROTA HARRIS #: [id number] GEOVANNA: 11/20/24 14:[address]: Rhina Adame NP DEPT: [facility], [facility] Cytology RECD BY: Katherine Gonzalez ENTERED: 11/20/24 18:01 SP TYPE: PAPFT OTHR DR: Luba Dueñas APRN Tissues: 1 - CX/ENDOCX FOR PAP SMEARS Procedures: PAP THIN PREP/UVM Screening HPV DNA PROBE Comments: [id number] (HPV 16 & 18/45) (CHLAMYDIA/GC)
[2024-11-21 12:14] LABS: Chlamydia Result Negative (Negative); GC Result Negative (Negative)
== END 2024-11-20 15:15 | disposition home or self-care (01) ==
LOC: LBN 15:14
PROVIDERS: PCP Nurse Practitioner; Visit Provider Nurse Practitioner Women's Health
DX: Z12.4 Encounter for screening for malignant neoplasm of cervix (principal)
CPT/HCPCS: 87491; 87591; 88142; 87624

== ENCOUNTER 2024-12-31 09:33 | Outpatient (REF) | payer OTHER, MEDICAID, SELFPAY | END 2024-12-31 09:34 | disposition home or self-care (01) | LOC: LBN 09:33 | PROVIDERS: PCP Nurse Practitioner; Visit Provider Nurse Practitioner Women's Health | DX: N76.0 Acute vaginitis (principal) | CPT/HCPCS: 87480; 87510; 87660 ==

== ENCOUNTER 2025-01-16 09:01 | Outpatient (REF) | payer OTHER, MEDICAID, SELFPAY | END 2025-01-16 09:02 | disposition home or self-care (01) | LOC: LBN 09:01 | PROVIDERS: PCP Nurse Practitioner; Visit Provider Obstetrics & Gynecology | DX: R30.0 Dysuria (principal) | CPT/HCPCS: 87077; 87086; 87186 ==

== ENCOUNTER 2025-02-11 09:22 | Outpatient (REF) | payer OTHER, MEDICAID, SELFPAY | END 2025-02-11 09:23 | disposition home or self-care (01) | LOC: LBN 09:22 | PROVIDERS: PCP Nurse Practitioner; Visit Provider Nurse Practitioner Women's Health | DX: R30.0 Dysuria (principal) | CPT/HCPCS: 87077; 87086; 87186 ==

== ENCOUNTER 2025-02-26 01:05 | Outpatient (CLI) | payer OTHER, MEDICAID, SELFPAY ==
[2025-02-26] MEDS: Inhaler, Assist Device 1 EACH MC (15:59)
[2025-02-26] MEDS: Albuterol HFA 18 GM 200 PUFF INH IH (16:00)
--- NOTE | 2025-02-27 07:42 | W.PFT ---
Date of service: 02/26/25 Time of Service: 15:02 Pulmonary Function Test Result Indications: Asthma Impression 1. Good patient effort was noted. ATS standards for reproducibility were met. 2. Normal spirometry. 3. Following the administration of a bronchodilator there was not a significant response 4. TLC was normal. No evidence of restrictive lung disease 5. DLCO was normal indicating normal alveolar gas exchange
== END 2025-02-26 01:06 | disposition home or self-care (01) ==
LOC: RT 01:05
PROVIDERS: PCP Nurse Practitioner Family; Visit Provider Nurse Practitioner Family
DX: J45.909 Unspecified asthma, uncomplicated (principal)
CPT/HCPCS: 94060; 94726; 94729

== ENCOUNTER → 2025-02-27 01:23 | Outpatient (CLI) | payer OTHER, MEDICAID, SELFPAY ==
--- NOTE | 2025-02-27 08:12 | DI.RAD_ITS ---
Exam(s) XR CHEST 2V PA LATERAL EXAM: XR CHEST 2V PA LATERAL CLINICAL HISTORY: cough x1 yr, hx asthma,r05.9 TECHNIQUE: 2D digital imaging was performed of the chest. Two images were obtained. PA and lateral views were obtained. COMPARISON: No exams were available for comparison FINDINGS: MEDIASTINUM: Normal. HEART: Normal. PULMONARY VASCULATURE: Normal. LUNGS: Clear. PLEURAL SPACE: No pleural effusion or pneumothorax. BONE:Within normal limits for the patient's age. OTHER FINDINGS:Normal. IMPRESSION: No acute pulmonary findings. DATA REPOSITORY: RADIATION DOSE DELIVERED:
== END ==
LOC: DI 01:23
PROVIDERS: PCP Nurse Practitioner Family; Visit Provider Nurse Practitioner Family
DX: R05.9 Cough, unspecified (principal)
CPT/HCPCS: 71046

== ENCOUNTER 2025-03-05 01:39 | Outpatient (CLI) | payer OTHER, MEDICAID, SELFPAY ==
[2025-03-05] MEDS: Albuterol HFA 18 GM 200 PUFF INH IH (14:32)
[2025-03-05] MEDS: Inhaler, Assist Device 1 EACH MC (14:32)
[2025-03-05] MEDS: Methacholine 100 MG VIAL IH (14:32)
--- NOTE | 2025-03-06 08:59 | W.PFT ---
Date of service: 03/05/25 Time of Service: 12:56 Pulmonary Function Test Result Indications: Asthma Impression 1. Good patient effort was noted. ATS standards for reproducibility were met. 2. Normal spirometry. 3. At 2.0 mg/mL of methacholine, there was a 23% fall in FEV1 Conclusion: - positive methacholine challenge testing
== END 2025-03-05 01:40 | disposition home or self-care (01) ==
LOC: RT 01:40
PROVIDERS: PCP Nurse Practitioner Family; Visit Provider Internal Medicine Pulmonary Disease
DX: J45.909 Unspecified asthma, uncomplicated (principal)
CPT/HCPCS: 94070; 95070; J7674

== ENCOUNTER 2025-03-06 00:50 | Outpatient (CLI) | payer OTHER, MEDICAID, SELFPAY ==
[2025-03-06 09:28] LABS: C-Reactive Protein < 0.50 mg/dL (<=0.50)
== END 2025-03-06 00:51 | disposition home or self-care (01) ==
LOC: LBO 00:50
PROVIDERS: PCP Nurse Practitioner Family; Referring Provider Nurse Practitioner Family; Visit Provider Nurse Practitioner Family
DX: J45.909 Unspecified asthma, uncomplicated (principal)
CPT/HCPCS: 36415; 86140